=== PATIENT | male | born 1990 | race Caucasian/White ===

== ENCOUNTER 2022-11-21 13:23 | Observation (INO) | payer OTHER ==
--- NOTE | 2022-11-21 13:54 | ED ---
General Adult HPI <Mercedez Mcintosh - Last Filed: 11/21/22 13:44> - General Source: patient - History of Present Illness -: days(s) (2) Location: abdomen Radiation: back Quality: stabbing, sharp Consistency: constant Improves with: none Worsens with: none Associated Symptoms: nausea/vomiting (no vomiting) <Sharad Griffin - Last Filed: 11/22/22 00:06> - General Chief complaint: Abdominal Pain Stated complaint: abd pain Time Seen by Provider: 11/21/22 16:04 - History of Present Illness Initial comments: Patient is a 32-year-old male presenting to the emergency room with complaints of upper abdominal pain across the top of his abdomen similar to previous pancreatic flares ongoing for 2 days and getting worse. He reports some fevers and chills but has not had a thermometer check his temperature. He reports some nausea without vomiting. He denies any diarrhea. He denies any chest pain, shortness of breath, headache, or dizziness. He does have a history of EtOH and pancreatitis. He is unsure of his last flare of pancreatitis. (Mercedez Mcintosh) This is a nontoxic-appearing pleasant 32-year-old male that presents with complaints of upper abdominal pain radiating into his back for 2 days. He has nausea but no vomiting. History of pancreatitis and states feels the same. He is a fifth a day drinker, last drink "in the wee hours of the morning". He is also a pack-a-day smoker. States he was hospitalized at [facility] last month for pancreatitis. 4 times in the past year. Denies any seizure history. (Sharad Griffin) - Related Data Home Medications Medication Instructions Recorded Confirmed No Known Home Medications 11/21/22 11/21/22 Allergies Allergy/AdvReac Type Severity Reaction Status Date / Time No Known Allergies Allergy Verified 11/21/22 19:04 Review of Systems ROS Other: All systems not noted in ROS Statement are negative. <Mercedez Mcintosh - Last Filed: 11/21/22 13:44> ROS Other: All systems not noted in ROS Statement are negative. <Sharad Griffin - Last Filed: 11/22/22 00:06> ROS Statement: Those systems with pertinent positive or pertinent negative responses have been documented in the HPI. General Exam General appearance: alert, in no apparent distress Head exam: Present: atraumatic, normocephalic Eye exam: Absent: scleral icterus, conjunctival injection, periorbital swelling ENT exam: Present: mucous membranes moist Neck exam: Present: normal inspection, full ROM. Absent: tenderness, meningismus Respiratory exam: Present: normal lung sounds bilaterally. Absent: respiratory distress, accessory muscle use Cardiovascular Exam: Present: regular rate, normal rhythm GI/Abdominal exam: Present: soft, tenderness. Absent: distended, rigid Extremities exam: Present: normal capillary refill Back exam: Present: normal inspection, full ROM. Absent: tenderness, CVA tenderness (R), CVA tenderness (L), rash noted Neurological exam: Present: alert, oriented X3 Psychiatric exam: Present: normal affect, normal mood Skin exam: Present: warm, dry, intact, normal color. Absent: cyanosis, diaphoretic, petechiae, pallor <Sharad Griffin - Last Filed: 11/22/22 00:06> Course Vital Signs 11/21/22 11/21/22 13:48 20:34 Temperature 97.2 F L Pulse Rate 76 58 L Respiratory 18 16 Rate Blood Pressure 148/92 143/106 O2 Sat by Pulse 96 98 Oximetry Medical Decision Making - Lab Data Result diagrams: 11/21/22 16:28 11/21/22 16:28 <Sharad Griffin - Last Filed: 11/22/22 00:06> - Medical Decision Making Alcohol level 0, lipase 1482, amylase 151, total bili 1.8. No evidence of leukocytosis. CT abdomen and pelvis interpreted by radiologist, retroperitoneal fat stranding and fluid around the pancreas and anterior pararenal space and transverse colon mesentery consistent with acute pancreatitis. Fatty infiltration of the liver. Pt admitted for acute pancreatitis. IVF boluses and pain meds provided. Case discussed with Dr Mancilla. Was pt. sent in by a medical professional or institution? @ -No Did you speak to anyone other than the patient for history? @ -No Did you review nursing and triage notes? @ -Yes I agree Were old charts reviewed? @ -No Differential Diagnosis? @ -Differential Abdominal Pain Men: Appendicitis, cholecystitis, diverticulosis, ischemic bowel, pancreatitis, hepatitis, UTI, gastroenteritis, AAA, incarcerated hernia, bowel obstruction, constipation, inflammatory bowel, hepatitis, peptic ulcer disease, splenic infarction, perforated viscus, testicular torsion, this is not meant to be an all-inclusive list CT interpreted by me (1pt min.)? @ -No What testing was considered but not performed? (CT, X-rays, U/S, labs)? Why? @None What meds were considered but not given? Why? @ -Antibiotics are considered if this was infectious etiology or evidence of free air which was negative. Did you discuss the management of the patient with other professionals? @ -No Did you reconcile home meds? @ -No Was smoking cessation discussed for >3mins.? @ -Yes Was critical care preformed (if so, how long)? @ -No Were there social determinants of health that impacted care today? How? (Homelessness, low income, unemployed, alcoholism, drug addiction, transportation, low edu. Level, literacy, decrease access to med. care, [facility], rehab)? @ -Alcoholism Was there de-escalation of care discussed even if they declined? (Discuss DNR or withdrawal of care, Hospice)? @ -No What co-morbidities impacted this encounter? (DM, HTN, Smoking, COPD, CAD, Cancer, CVA, Hep., AIDS, mental health diagnosis, sleep apnea, morbid obesity)? @ -Smoking, history of pancreatitis Was patient admitted / discharged? @ -Admitted Undiagnosed new problem with uncertain prognosis? @ -[none] Drug Therapy requiring intensive monitoring for toxicity (Heparin, Nitro, Insulin, Cardizem)? @ -No Were any procedures done? @ -No Diagnosis/symptom? @ -Pancreatitis Acute, or Chronic, or Acute on Chronic? @ -Acute Uncomplicated (without systemic symptoms) or Complicated (systemic symptoms)? @ -[default] Side effects of treatment? @ -[none] Exacerbation, Progression, or Severe Exacerbation] @ -[no] Poses a threat to life or bodily function? @ -[no] (Sharad Griffin) - Lab Data Lab Results 11/21/22 11/21/22 11/21/22 Range/Units 16:28 16:28 16:28 WBC 7.8 (3.8-10.6) k/uL RBC 4.38 (4.30-5.90) m/uL Hgb 14.4 (13.0-17.5) gm/dL Hct 39.5 (39.0-53.0) % MCV 90.4 (80.0-100.0) fL MCH 33.0 (25.0-35.0) pg MCHC 36.5 (31.0-37.0) g/dL RDW 12.4 (11.5-15.5) % Plt Count 146 L (150-450) k/uL MPV 8.2 Neutrophils % 84 % Lymphocytes % 9 % Monocytes % 5 % Eosinophils % 1 % Basophils % 0 % Neutrophils # 6.5 (1.3-7.7) k/uL Lymphocytes # 0.7 L (1.0-4.8) k/uL Monocytes # 0.4 (0-1.0) k/uL Eosinophils # 0.1 (0-0.7) k/uL Basophils # 0.0 (0-0.2) k/uL Sodium 134 L (137-145) mmol/L Potassium 4.1 (3.5-5.1) mmol/L Chloride 99 (98-107) mmol/L Carbon Dioxide 26 (22-30) mmol/L Anion Gap 9 mmol/L BUN 14 (9-20) mg/dL Creatinine 0.63 L (0.66-1.25) mg/dL Est GFR (CKD-EPI)AfAm >90 (>60 ml/min/1.73 sqM) Est GFR (CKD-EPI)NonAf >90 (>60 ml/min/1.73 sqM) Glucose 101 H (74-99) mg/dL Plasma Lactic Acid Emerson (0.7-2.0) mmol/L Calcium 9.7 (8.4-10.2) mg/dL Total Bilirubin 1.8 H (0.2-1.3) mg/dL AST 55 (17-59) U/L ALT 35 (4-49) U/L Alkaline Phosphatase 103 (38-126) U/L Total Protein 7.4 (6.3-8.2) g/dL Albumin 4.6 (3.5-5.0) g/dL Amylase 151 H (30-110) U/L Lipase 1482 H (23-300) U/L Urine Color Light Yellow Urine Appearance Cloudy (Clear) Urine pH 7.5 (5.0-8.0) Ur Specific Admire 1.009 (1.001-1.035) Urine Protein Negative (Negative) Urine Glucose (UA) Negative (Negative) Urine Ketones 1+ H (Negative) Urine Blood Negative (Negative) Urine Nitrite Negative (Negative) Urine Bilirubin Negative (Negative) Urine Urobilinogen <2.0 (<2.0) mg/dL Ur Leukocyte Esterase Small H (Negative) Urine RBC 1 (0-5) /hpf Urine WBC 5 (0-5) /hpf Urine Yeast (Budding) Few H (None) /hpf Serum Alcohol mg/dL 11/21/22 11/21/22 Range/Units 17:27 17:27 WBC (3.8-10.6) k/uL RBC (4.30-5.90) m/uL Hgb (13.0-17.5) gm/dL Hct (39.0-53.0) % MCV (80.0-100.0) fL MCH (25.0-35.0) pg MCHC (31.0-37.0) g/dL RDW (11.5-15.5) % Plt Count (150-450) k/uL MPV Neutrophils % % Lymphocytes % % Monocytes % % Eosinophils % % Basophils % % Neutrophils # (1.3-7.7) k/uL Lymphocytes # (1.0-4.8) k/uL Monocytes # (0-1.0) k/uL Eosinophils # (0-0.7) k/uL Basophils # (0-0.2) k/uL Sodium (137-145) mmol/L Potassium (3.5-5.1) mmol/L Chloride (98-107) mmol/L Carbon Dioxide (22-30) mmol/L Anion Gap mmol/L BUN (9-20) mg/dL Creatinine (0.66-1.25) mg/dL Est GFR (CKD-EPI)AfAm (>60 ml/min/1.73 sqM) Est GFR (CKD-EPI)NonAf (>60 ml/min/1.73 sqM) Glucose (74-99) mg/dL Plasma Lactic Acid Emerson 0.7 (0.7-2.0) mmol/L Calcium (8.4-10.2) mg/dL Total Bilirubin (0.2-1.3) mg/dL AST (17-59) U/L ALT (4-49) U/L Alkaline Phosphatase (38-126) U/L Total Protein (6.3-8.2) g/dL Albumin (3.5-5.0) g/dL Amylase (30-110) U/L Lipase (23-300) U/L Urine Color Urine Appearance (Clear) Urine pH (5.0-8.0) Ur Specific Admire (1.001-1.035) Urine Protein (Negative) Urine Glucose (UA) (Negative) Urine Ketones (Negative) Urine Blood (Negative) Urine Nitrite (Negative) Urine Bilirubin (Negative) Urine Urobilinogen (<2.0) mg/dL Ur Leukocyte Esterase (Negative) Urine RBC (0-5) /hpf Urine WBC (0-5) /hpf Urine Yeast (Budding) (None) /hpf Serum Alcohol <10 mg/dL Disposition <Mercedez Mcintosh - Last Filed: 11/21/22 13:44> Decision Date: 11/21/22 Decision Time: 18:30 <Sharad Griffin - Last Filed: 11/22/22 00:06> Clinical Impression: Pancreatitis Disposition: ADMITTED IP TO THIS HOSP
[2022-11-21] MEDS ORDERED: SODIUM CHLORIDE 0.9% 1,000 ML IV STA ×2 (16:20)
[2022-11-21] MEDS ORDERED: PANTOPRAZOLE 40 MG/10 ML VIAL IVP STA (16:20)
[2022-11-21 16:32] LABS: Basophils % (A) 0 %; Eosinophils # (A) 0.1 k/uL (0-0.7); Eosinophils % (A) 1 %; HCT 39.5 % (39.0-53.0); HGB 14.4 gm/dL (13.0-17.5); Lymphocytes # (A) 0.7 k/uL (1.0-4.8); Lymphocytes % (A) 9 %; MCHC 36.5 g/dL (31.0-37.0); MCV 90.4 fL (80.0-100.0); Mean Platelet Volume 8.2; Monocytes # (A) 0.4 k/uL (0-1.0); Monocytes % (A) 5 %; Neutrophils # (A) 6.5 k/uL (1.3-7.7); Neutrophils % (A) 84 %; Platelet Count 146 k/uL (150-450); RBC 4.38 m/uL (4.30-5.90); RDW 12.4 % (11.5-15.5); WBC 7.8 k/uL (3.8-10.6)
[2022-11-21 16:34] LABS: Appearance,Urine Cloudy (Clear); Bilirubin,Urine Negative (Negative); Blood,Urine Negative (Negative); Budding Yeast,Urine Few /hpf; Color,Urine Light Yellow; Glucose,Urine (UA) Negative (Negative); Ketones,Urine 1+ (Negative); Leukocyte Esterase,Urine Small (Negative); Nitrite,Urine Negative (Negative); PH, Urine 7.5 (5.0-8.0); Protein,Urine Negative (Negative); RBC,Urine 1 /hpf (0-5); Specific Gravity,Urine 1.009 (1.001-1.035); Urobilinogen,Urine <2.0 mg/dL (<2.0); WBC,Urine 5 /hpf (0-5)
[2022-11-21 16:41] LABS: ALT 35 U/L (4-49); AST 55 U/L (17-59); African American GFR (CKD) >90 (>60 ml/min/1.73 sqM); Albumin 4.6 g/dL (3.5-5.0); Alkaline Phosphatase 103 U/L (38-126); Amylase 151 U/L (30-110); Anion Gap 9 mmol/L; Blood Urea Nitrogen 14 mg/dL (9-20); Calcium 9.7 mg/dL (8.4-10.2); Carbon Dioxide 26 mmol/L (22-30); Chloride 99 mmol/L (98-107); Glucose 101 mg/dL (74-99); Lipase 1482 U/L (23-300); Non-African American GFR(CKD) >90 (>60 ml/min/1.73 sqM); Potassium 4.1 mmol/L (3.5-5.1); Sodium 134 mmol/L (137-145); Total Bilirubin 1.8 mg/dL (0.2-1.3); Total Protein 7.4 g/dL (6.3-8.2)
[2022-11-21] MEDS ORDERED: HYDROmorphone 0.5 MG/0.5 ML SYRINGE IVP STA ×2 (17:07→18:30)
--- NOTE | 2022-11-21 17:08 | CT ---
EXAMINATION TYPE: CT abdomen pelvis wo con DATE OF EXAM: 11/21/2022 COMPARISON: None HISTORY: Abdominal and low back pain. CT DLP: 535.4 mGycm Automated exposure control for dose reduction was used. Images obtained from the diaphragm to the floor the pelvis with no contrast. Lung bases are clear. No pleural effusion. Heart size is normal. No pericardial effusion. There is fa tty infiltration of the liver. Spleen is intact. There is moderate fat stranding around the pancreas. Gallbladder has normal size. The bile ducts are not dilated. There is no adrenal mass. Kidneys of normal size and contour. No hydronephrosis. There is mild wall t hickening around the proximal duodenum. There is no retroperitoneal adenopathy. Bladder distends smoo thly. No inguinal hernia. No free fluid in the pelvis. No evidence of a pelvic mass. Appendix is late ral and appears normal. There is some mild fat stranding around the transverse colon in the large bow el mesentery. The lumbar vertebrae have normal alignment. No compression fracture. Posterior elements are intact. B leona pelvis is intact. IMPRESSION: Retroperitoneal fat stranding and fluid around the pancreas and anterior pararenal space and transver se colon mesentery and consistent with acute pancreatitis. Fatty infiltration of the liver.
[2022-11-21] MEDS ORDERED: LACTATED RINGERS 1,000 ML IV ONE (18:46)
[2022-11-21] MEDS ORDERED: HYDROmorphone 0.5 MG/0.5 ML SYRINGE IVP PRN (18:47)
[2022-11-21] MEDS ORDERED: NALOXONE 0.4 MG/ML 1 ML VIAL IV PRN (18:47)
[2022-11-21] MEDS ORDERED: LORazepam 1 MG TAB PO PRN (19:00)
--- NOTE | 2022-11-21 19:09 | P.HPIM ---
History of Present Illness H&P Date: 11/21/22 Patient is a 32-year-old male with PMH of chronic alcohol abuse drinks 1/5 of liquor daily, history of pancreatitis and presents ED for abdominal pain. Patient reports abdominal pain has been ongoing for the past 3-4 days. Abdominal pain is epigastric, sharp and stabbing radiating to the back. He also reports dry heaves. The symptoms are concerning for pancreatitis which brought him to the ED. He denies any headache, lower extremity edema, fever chills, cough, chest pain, shortness of breath, palpitations, changes in urination upon habits. No changes in appetite or weight. He denies any dizziness, numbness/weakness/tingling of the extremities. In the ED, his vital signs are stable. CBC showed platelet count 146. CMP showed sodium of 134, creatinine is 0.63, glucose 101, total bilirubin 1.8. Amylase is 151 and lipase was 1482. Lactic acid negative. Urinalysis showed small leukocyte esterase and 1+ ketone. Serum alcohol negative. CTAP concerning for acute pancreatitis. Patient is admitted for pancreatitis. Pertinent positives and negatives as discussed in HPI, a complete review of systems was performed and all other systems are negative. General: non toxic, no distress, appears at stated age Derm: warm, dry Head: atraumatic, normocephalic, symmetric Eyes: EOMI, no lid lag, anicteric sclera Mouth: no lip lesion, mucus membranes moist Cardiovascular: S1S2 reg, no murmur, positive posterior tibial pulse bilateral, Lungs: CTA bilateral, no rhonchi, no rales , no accessory muscle use Abdominal: soft, tenderness to palpation in the epigastric area without rebound, no guarding, no appreciable organomegaly Ext: no gross muscle atrophy, no edema, no contractures Neuro: CN II-XI grossly intact, no focal neuro deficits Psych: Alert, oriented, appropriate affect #Acute pancreatitis Start NS at 130 cc/hr. Pain control with Dilaudid and Percocet PRN. Nothing by mouth and advance diet as tolerated. Protonix 40 mg IV daily. #Alcohol abuse with impending withdrawal Patient encouraged to quit. CIWA protocol with Ativan as needed. Thiamine, multivitamin, folic acid daily. #Thrombocytopenia #Elevated total bilirubin Likely related to alcohol abuse. #Smoker Patient offered a nicotine patch. DVT prophylaxis: SCD Discussed with: Patient, ED physician Anticipated discharge: 2-[address]: Home Patient names his mother decision maker if he can't make decisions for himself. Patient would like to be full code. Past Medical History Additional Past Medical History / Comment(s): Chronic alcoholic, Pancretitis History of Any Multi-Drug Resistant Organisms: None Reported Past Surgical History: No Surgical Hx Reported Additional Past Surgical History / Comment(s): hernia repair - inguinal Past Psychological History: No Psychological Hx Reported Smoking Status: Current every day smoker Past Alcohol Use History: Abuse, Heavy Past Drug Use History: None Reported Medications and Allergies Home Medications Medication Instructions Recorded Confirmed Type No Known Home Medications 11/21/22 11/21/22 History Allergies Allergy/AdvReac Type Severity Reaction Status Date / Time No Known Allergies Allergy Verified 11/21/22 19:04 Physical Exam Vitals: Vital Signs Temp Pulse Resp BP Pulse Ox 11/21/22 13:48 97.2 F L 76 18 148/92 96 Intake and Output 11/21/22 11/21/22 11/21/22 06:59 14:59 22:59 Other: Weight 74.843 kg Results CBC & Chem 7: 11/21/22 16:28 11/21/22 16:28 Labs: Abnormal Lab Results - Last 24 Hours (Table) 11/21/22 11/21/22 11/21/22 Range/Units 16:28 16:28 16:28 Plt Count 146 L (150-450) k/uL Lymphocytes # 0.7 L (1.0-4.8) k/uL Sodium 134 L (137-145) mmol/L Creatinine 0.63 L (0.66-1.25) mg/dL Glucose 101 H (74-99) mg/dL Total Bilirubin 1.8 H (0.2-1.3) mg/dL Amylase 151 H (30-110) U/L Lipase 1482 H (23-300) U/L Urine Ketones 1+ H (Negative) Ur Leukocyte Esterase Small H (Negative) Urine Yeast (Budding) Few H (None) /hpf
[2022-11-21] MEDS: NICOTINE 21MG/24HR PATCH TRANSDERM SCH (20:18)
[2022-11-21] MEDS: oxyCODONE-APAP 10-325MG 1 EACH TAB PO PRN (20:31)
[2022-11-21] MEDS: SODIUM CHLORIDE 0.9% 1,000 ML IV SCH (20:31)
[2022-11-21] MEDS: HYDROmorphone 1 MG/ML 1 ML SYRINGE IVP PRN (21:09)
[2022-11-21] MEDS: LORazepam 2 MG/ML INJ IV PRN (23:07)
[2022-11-22] MEDS: HYDROmorphone 1 MG/ML 1 ML SYRINGE IVP PRN ×8 (00:08→23:41)
[2022-11-22] MEDS: SODIUM CHLORIDE 0.9% 1,000 ML IV SCH ×4 (03:00→23:43)
[2022-11-22] MEDS: PANTOPRAZOLE 40 MG/10 ML VIAL IV SCH (06:10)
[2022-11-22] MEDS: LORazepam 2 MG/ML INJ IV PRN ×3 (08:08→20:06)
[2022-11-22] MEDS: NICOTINE 21MG/24HR PATCH TRANSDERM SCH (08:10)
[2022-11-22] MEDS: THIAMINE 100 MG TAB PO SCH (08:10)
[2022-11-22] MEDS: MULTIVITAMINS, THERA 1 EACH TAB PO SCH (08:10)
[2022-11-22] MEDS: FOLIC ACID 1 MG TAB PO SCH (08:10)
[2022-11-22 09:54] LABS: Basophils # (A) 0.03 X 10*3/uL (0.00-0.10); Basophils % (A) 0.5 %; Eosinophils # (A) 0.09 X 10*3/uL (0.04-0.35); Eosinophils % (A) 1.5 %; HCT 38.9 % (39.6-50.0); HGB 13.1 g/dL (13.0-17.0); Immature Grans, Automated 0.3 %; Lymphocytes # (A) 0.93 X 10*3/uL (0.90-5.00); Lymphocytes % (A) 15.1 %; MCH 31.6 pg (27.0-32.0); MCHC 33.7 g/dL (32.0-37.0); Mean Platelet Volume 10.8 fL (9.5-12.2); Monocytes # (A) 0.62 X 10*3/uL (0.20-1.00); NRBC Per 100 WBC 0 /100 WBCS (0.0-0.0); Neutrophils # (A) 4.48 X 10*3/uL (1.80-7.70); Neutrophils % (A) 72.6 %; Platelet Count 143 X 10*3/uL (140-440); RBC 4.14 X 10*6/uL (4.40-5.60); RDW 12.6 % (11.5-14.5); WBC 6.17 X 10*3/uL (4.50-10.00)
[2022-11-22 10:04] LABS: African American GFR (CKD) 143.7 (60.0-200.0); Albumin 4.5 g/dL (3.8-4.9); Albumin/Globulin Ratio 2.14 (1.60-3.17); Anion Gap 12.9 mmol/L (10.00-18.00); Blood Urea Nitrogen 11.2 mg/dL (9.0-27.0); Carbon Dioxide 23.1 mmol/L (20.0-27.5); Globulin 2.1 g/dL (1.6-3.3); Magnesium 1.7 mg/dL (1.5-2.4); Total Bilirubin 1.4 mg/dL (0.30-1.20); Total Protein 6.6 g/dL (6.2-8.2)
[2022-11-22] MEDS: oxyCODONE-APAP 10-325MG 1 EACH TAB PO PRN (12:31)
--- NOTE | 2022-11-22 16:59 | P.PN ---
Subjective Progress Note Date: 11/22/22 Patient is a 32-year-old male with PMH of chronic alcohol abuse drinks 1/5 of liquor daily, history of pancreatitis and presents ED for abdominal pain. Patient reports abdominal pain has been ongoing for the past 3-4 days. Abdominal pain is epigastric, sharp and stabbing radiating to the back. He also reports dry heaves. The symptoms are concerning for pancreatitis which brought him to the ED. He denies any headache, lower extremity edema, fever chills, cough, chest pain, shortness of breath, palpitations, changes in urination upon habits. No changes in appetite or weight. He denies any dizziness, numbness/weakness/tingling of the extremities. In the ED, his vital signs are stable. CBC showed platelet count 146. CMP showed sodium of 134, creatinine is 0.63, glucose 101, total bilirubin 1.8. Amylase is 151 and lipase was 1482. Lactic acid negative. Urinalysis showed small leukocyte esterase and 1+ ketone. Serum alcohol negative. CTAP concerning for acute pancreatitis. Patient is admitted for pancreatitis. Patient was seen and examined. No acute events overnight. Patient dictation report epigastric pain, 8 out of 10 in severity. He reports nausea but no vomiting. General: non toxic, no distress, appears at stated age Derm: warm, dry Head: atraumatic, normocephalic, symmetric Eyes: EOMI, no lid lag, anicteric sclera Mouth: no lip lesion, mucus membranes moist Cardiovascular: S1S2 reg, no murmur Lungs: CTA bilateral, no rhonchi, no rales , no accessory muscle use Abdominal: soft, tenderness to palpation in the epigastric area without rebound, no guarding, no appreciable organomegaly Ext: no gross muscle atrophy, no edema, no contractures Neuro: no focal neuro deficits Psych: Alert, oriented, appropriate affect #Acute pancreatitis Continue NS at 130 cc/hr. Pain control with Dilaudid and Percocet PRN. Clear liquid diet and advance diet as tolerated. Protonix 40 mg IV daily. #Alcohol abuse with impending withdrawal Patient encouraged to quit. CIWA protocol with Ativan as needed. Thiamine, multivitamin, folic acid daily. #Thrombocytopenia #Elevated total bilirubin Likely related to alcohol abuse. #Smoker Patient offered a nicotine patch. Objective - Vital Signs Vital signs: Vital Signs Temp 98.1 F 11/22/22 12:45 Pulse 64 11/22/22 12:45 Resp 18 11/22/22 12:45 BP 168/87 11/22/22 12:45 Pulse Ox 98 11/22/22 12:45 FiO2 Intake & Output 11/21/22 11/22/22 11/22/22 18:59 06:59 18:59 Intake Total 1040 Output Total 0 0 Balance 1040 0 Weight 74.843 kg Intake: Intake, IV Titration 1040 Amount Sodium Chloride 0.9% 1, 1040 000 ml @ 130 mls/hr IV . [id number] STA Rx#:[id number] Output: Stool 0 0 - Labs CBC & Chem 7: 11/22/22 06:15 11/22/22 06:15 Labs: Abnormal Lab Results - Last 24 Hours (Table) 11/22/22 11/22/22 Range/Units 06:15 06:15 RBC 4.14 L (4.40-5.60) X 10*6/uL Hct 38.9 L (39.6-50.0) % Total Bilirubin 1.40 H (0.30-1.20) mg/dL AST 39 H (14-35) U/L
[2022-11-23] MEDS: HYDROmorphone 1 MG/ML 1 ML SYRINGE IVP PRN ×2 (02:49→08:44)
[2022-11-23] MEDS: NICOTINE 21MG/24HR PATCH TRANSDERM SCH (08:44)
[2022-11-23] MEDS: PANTOPRAZOLE 40 MG/10 ML VIAL IV SCH (08:44)
[2022-11-23] MEDS: MULTIVITAMINS, THERA 1 EACH TAB PO SCH (08:45)
[2022-11-23] MEDS: THIAMINE 100 MG TAB PO SCH (08:45)
[2022-11-23] MEDS: FOLIC ACID 1 MG TAB PO SCH (08:45)
[2022-11-23] MEDS: oxyCODONE-APAP 10-325MG 1 EACH TAB PO PRN ×2 (14:21→21:11)
--- NOTE | 2022-11-23 15:13 | P.PN ---
Subjective Progress Note Date: 11/23/22 Patient is a 32-year-old male with PMH of chronic alcohol abuse drinks 1/5 of liquor daily, history of pancreatitis and presents ED for abdominal pain. Patient reports abdominal pain has been ongoing for the past 3-4 days. Abdominal pain is epigastric, sharp and stabbing radiating to the back. He also reports dry heaves. The symptoms are concerning for pancreatitis which brought him to the ED. He denies any headache, lower extremity edema, fever chills, cough, chest pain, shortness of breath, palpitations, changes in urination upon habits. No changes in appetite or weight. He denies any dizziness, numbness/weakness/tingling of the extremities. In the ED, his vital signs are stable. CBC showed platelet count 146. CMP showed sodium of 134, creatinine is 0.63, glucose 101, total bilirubin 1.8. Amylase is 151 and lipase was 1482. Lactic acid negative. Urinalysis showed small leukocyte esterase and 1+ ketone. Serum alcohol negative. CTAP concerning for acute pancreatitis. Patient is admitted for pancreatitis. Patient was seen and examined. No acute events overnight. Patient reports improvement in his epigastric pain. He reports nausea but no vomiting. Would like to try to eat. General: non toxic, no distress, appears at stated age Derm: warm, dry Head: atraumatic, normocephalic, symmetric Eyes: EOMI, no lid lag, anicteric sclera Mouth: no lip lesion, mucus membranes moist Cardiovascular: S1S2 reg, no murmur Lungs: CTA bilateral, no rhonchi, no rales , no accessory muscle use Abdominal: soft, tenderness to palpation in the epigastric area without rebound, no guarding, no appreciable organomegaly Ext: no gross muscle atrophy, no edema, no contractures Neuro: no focal neuro deficits Psych: Alert, oriented, appropriate affect #Acute pancreatitis Continue NS at 130 cc/hr. Pain control with Dilaudid and Percocet PRN. Clear liquid diet and advance diet as tolerated. Protonix 40 mg IV daily. #Alcohol abuse with impending withdrawal Patient encouraged to quit. CIWA protocol with Ativan as needed. Thiamine, multivitamin, folic acid daily. #Thrombocytopenia #Elevated total bilirubin Likely related to alcohol abuse. #Smoker Patient offered a nicotine patch. Patient reassessed after clear liquid. He reports increased abdominal pain. We'll continue to monitor. Hopeful discharge in 1-2 days. Objective - Vital Signs Vital signs: Vital Signs Temp 98.3 F 11/23/22 13:22 Pulse 60 11/23/22 13:22 Resp 16 11/23/22 13:22 BP 177/97 11/23/22 13:22 Pulse Ox 98 11/23/22 13:22 FiO2 Intake & Output 11/22/22 11/23/22 11/23/22 18:59 06:59 18:59 Intake Total 360 Output Total 0 Balance 360 Intake: Oral 360 Output: Stool 0 Other: Voiding Method Toilet Toilet # Voids 4 2 # Bowel Movements 1 - Labs CBC & Chem 7: 11/22/22 06:15 11/22/22 06:15
[2022-11-23] MEDS: SODIUM CHLORIDE 0.9% 1,000 ML IV SCH ×2 (16:19→21:12)
[2022-11-24 04:13] VITALS: RESP 16
[2022-11-24] MEDS: SODIUM CHLORIDE 0.9% 1,000 ML IV SCH ×2 (06:12→09:21)
[2022-11-24 08:21] VITALS: BP 172/116; PULSE 64; TEMP 97.9
[2022-11-24] MEDS: PANTOPRAZOLE 40 MG/10 ML VIAL IV SCH (08:41)
[2022-11-24] MEDS: NICOTINE 21MG/24HR PATCH TRANSDERM SCH (08:42)
[2022-11-24] MEDS: MULTIVITAMINS, THERA 1 EACH TAB PO SCH (08:42)
[2022-11-24] MEDS: FOLIC ACID 1 MG TAB PO SCH (08:42)
[2022-11-24] MEDS: THIAMINE 100 MG TAB PO SCH (08:42)
[2022-11-24] MEDS: oxyCODONE-APAP 10-325MG 1 EACH TAB PO PRN (08:58)
--- NOTE | 2022-11-24 14:06 | P.DS ---
Providers Date of admission: 11/21/22 18:22 Expected date of discharge: 11/24/22 Attending physician: Johanna Lassiter MD Primary care physician: Stated None Hospital Course: Patient is a 32-year-old male with PMH of chronic alcohol abuse drinks 1/5 of liquor daily, history of pancreatitis and presents ED for abdominal pain. Patient reports abdominal pain has been ongoing for the past 3-4 days. Abdominal pain is epigastric, sharp and stabbing radiating to the back. He also reports dry heaves. The symptoms are concerning for pancreatitis which brought him to the ED. He denies any headache, lower extremity edema, fever chills, cough, chest pain, shortness of breath, palpitations, changes in urination upon habits. No changes in appetite or weight. He denies any dizziness, numbness/weakness/tingling of the extremities. In the ED, his vital signs are stable. CBC showed platelet count 146. CMP showed sodium of 134, creatinine is 0.63, glucose 101, total bilirubin 1.8. Amylase is 151 and lipase was 1482. Lactic acid negative. Urinalysis showed small leukocyte esterase and 1+ ketone. Serum alcohol negative. CTAP concerning for acute pancreatitis. Patient is admitted for pancreatitis. His pain was controlled with Dilaudid and Percocet as needed. He was hydrated with normal saline. He was started on Protonix IV. Zofran for nausea and vomiting. He was placed on CIWA protocol given Ativan as needed. His clinical condition improved. His diet was advanced and patient was able to tolerate. Patient was seen and examined this morning. No acute events overnight. Patient reports improvement in his abdominal pain. He is able to tolerate clear liquid diet without vomiting. Patient is requesting to be discharged home. Pertinent studies include CT abdomen and pelvis General: non toxic, no distress, appears at stated age Derm: warm, dry Head: atraumatic, normocephalic, symmetric Eyes: EOMI, no lid lag, anicteric sclera Mouth: no lip lesion, mucus membranes moist Cardiovascular: S1S2 reg, no murmur, positive posterior tibial pulse bilateral, Lungs: CTA bilateral, no rhonchi, no rales , no accessory muscle use Abdominal: soft, tenderness to palpation in the epigastric area without rebound, no guarding, no appreciable organomegaly Ext: no gross muscle atrophy, no edema, no contractures Neuro: no focal neuro deficits Psych: Alert, oriented, appropriate affect Discharge diagnosis: #Acute pancreatitis #Alcohol abuse with impending withdrawal #Thrombocytopenia #Elevated total bilirubin #Smoker This complex discharge took 35 minutes to complete. Patient Condition at Discharge: Stable Plan - Discharge Summary New Discharge Prescriptions: New Folic Acid 1 mg PO DAILY tab oxyCODONE-APAP 10-325MG [Percocet 10-325 mg] 1 each PO Q6HR PRN #12 tab PRN Reason: Pain Pantoprazole [Protonix] 40 mg PO DAILY #30 tab Thiamine [Vitamin B-1] 100 mg PO DAILY tab Multivitamins, Thera [Multivitamin (formulary)] 1 each PO DAILY tab Discharge Medication List Folic Acid 1 mg PO DAILY tab 11/24/22 [Rx] Multivitamins, Thera [Multivitamin (formulary)] 1 each PO DAILY tab 11/24/22 [Rx] Pantoprazole [Protonix] 40 mg PO DAILY #30 tab 11/24/22 [Rx] Thiamine [Vitamin B-1] 100 mg PO DAILY tab 11/24/22 [Rx] oxyCODONE-APAP 10-325MG [Percocet 10-325 mg] 1 each PO Q6HR PRN #12 tab 11/24/22 [Rx] Follow up Appointment(s)/Referral(s): None,Stated [Primary Care Provider] - 1-2 days Patient Instructions/Handouts: Oxycodone/Acetaminophen (By mouth), Pantoprazole (By mouth), Pancreatitis (DC) Activity/Diet/Wound Care/Special Instructions: Please stop drinking. Discharge Disposition: HOME SELF-CARE
== END 2022-11-24 11:18 | disposition home or self-care (01) ==
LOC: EC 13:23 → 5NMEDONC 18:22 → INTOOBSV 18:22 → 5NMEDONC 19:58 → UNDODISIN 11-24 11:18
PROVIDERS: ADMIT Family Medicine; ATTEND Family Medicine
DX: K85.90 Acute pancreatitis without necrosis or infection, unspecified (principal); K76.0 Fatty (change of) liver, not elsewhere classified; F17.200 Nicotine dependence, unspecified, uncomplicated; D69.6 Thrombocytopenia, unspecified; F10.20 Alcohol dependence, uncomplicated; Y90.0 Blood alcohol level of less than 20 mg/100 ml
CPT/HCPCS: 96376 ×4; 96361 ×5; 96375 ×2; 96360; 96374; 99285; 36415; 80053 ×2; 82150; 83605; 83690; 83735; 85025 ×2; 81001; 80320; 74176; G0378 ×4; S4990 ×4; J2060 ×2; J1170 ×4; C9113 ×4